=== PATIENT | female | born 1975 | race Two or more races ===

== ENCOUNTER 2018-09-01 13:38 | Emergency (ER) | payer OTHER ==
[2018-09-01 14:03] VITALS: TEMP 98.7
--- NOTE | 2018-09-01 14:35 | ED ---
Upper Extremity HPI - General Chief Complaint: Extremity Injury, Upper Stated Complaint: finger injury Time Seen by Provider: 09/01/18 14:06 Source: patient, RN notes reviewed Mode of arrival: ambulatory Limitations: no limitations - History of Present Illness Initial Comments: 43-year-old female presents emergency Department with chief complaint of left hand second digit injury. Patient states she cut it on a lashae jar proximal month ago. She had a laceration at the MCP region and PIP region. Patient states that his still swollen, discomfort with range of motion. She states that she has no associated paresthesias was not seen for this injury at this emergency department. Patient states she is [id number] though she states it's painful when she works in causes issues for her. - Related Data Previous Rx's Medication Instructions Recorded HYDROcodone/APAP 7.5-325MG [[place] 1 each PO Q6HR PRN #14 tab 01/31/14 7.5-325] Ibuprofen [Motrin] 600 mg PO Q8HR #30 tab 01/31/14 Allergies Allergy/AdvReac Type Severity Reaction Status Date / Time No Known Allergies Allergy Verified 09/01/18 14:03 Review of Systems ROS Statement: Those systems with pertinent positive or pertinent negative responses have been documented in the HPI. ROS Other: All systems not noted in ROS Statement are negative. Past Medical History Past Medical History: Fibromyalgia, Osteoarthritis (OA) History of Any Multi-Drug Resistant Organisms: None Reported Past Surgical History: Appendectomy, Section Additional Past Surgical History / Comment(s): glass removed from Rt leg Past Psychological History: No Psychological Hx Reported Smoking Status: Current every day smoker Past Alcohol Use History: None Reported Past Drug Use History: None Reported General Exam Limitations: no limitations General appearance: alert, in no apparent distress Head exam: Present: atraumatic, normocephalic, normal inspection Respiratory exam: Present: normal lung sounds bilaterally. Absent: respiratory distress, wheezes, rales, rhonchi, stridor Cardiovascular Exam: Present: regular rate, normal rhythm, normal heart sounds. Absent: systolic murmur, diastolic murmur, rubs, gallop, clicks Extremities exam: Present: other (Left hand second digit there is scarring and swelling noted at the MCP region and PIP region patient does have full range of motion and capillary refill less than 2 seconds) Skin exam: Present: warm, dry, intact, normal color. Absent: rash Course Vital Signs 09/01/18 14:00 Temperature 98.7 F Pulse Rate 92 Respiratory 18 Rate Blood Pressure 145/85 O2 Sat by Pulse 97 Oximetry Medical Decision Making - Medical Decision Making 43-year-old presented for finger injury x-rays were obtained no acute abnormality. Patient has some residual pain from old laceration may be related to scar tissue. Patient with follow-up with on-call orthopedics for evaluation. Return parameters were discussed. Disposition Clinical Impression: Finger pain, left Disposition: HOME SELF-CARE Condition: Stable Instructions (If sedation given, give patient instructions): Finger Sprain (ED) Additional Instructions: Please return to the Emergency Department if symptoms worsen or any other concerns. Is patient prescribed a controlled substance at d/c from ED?: No Referrals: Stephanie Sanchez MD [Primary Care Provider] - 1-2 days Chris Oswald DO [Medical Doctor] - 1-2 days Time of Disposition: 15:18
--- NOTE | 2018-09-01 14:54 | XR ---
Second digit left hand HISTORY: Pain, trauma 3 views of the second digit of the left hand correlated to prior exam 01/31/2014 Bone mineralization, joint spaces and alignment are maintained IMPRESSION: No fracture or dislocation
[2018-09-01 15:27] VITALS: BP 139/85; PULSE 18; RESP 74
== END 2018-09-01 15:26 | disposition home or self-care (01) ==
LOC: EC 13:38
DX: M79.645 Pain in left finger(s) (principal); L90.5 Scar conditions and fibrosis of skin; M79.89 Other specified soft tissue disorders; F17.200 Nicotine dependence, unspecified, uncomplicated
CPT/HCPCS: 99283